=== PATIENT | male | born 1955 ===

== ENCOUNTER → 2017-04-20 | Outpatient (CLI) | payer BC ==
[~2017-04-20] MED LIST: ALLEGRA ALLERG180 M1 PO; DULO30 PO; DULO60 PO; FLUSAL1005 INH; Omeprazole20 M1 PO
== END ==
LOC: LAB SHORT 10:52
DX: J02.9 Acute pharyngitis, unspecified (principal)
CPT/HCPCS: 87070

== ENCOUNTER 2019-01-29 10:37 | Day surgery (SDC) | payer BC ==
[~2019-01-29] VITALS: Ht 170.2 cm; Wt 86.1 kg
[2019-01-29] MEDS ORDERED: BECL25NI (11:51)
[2019-01-29] MEDS ORDERED: IBUP600 (11:52)
[2019-01-29] MEDS ORDERED: FLUTICASONE-SA1 EAC1 (11:52)
== END 2019-01-29 13:17 | disposition home or self-care (01) ==
LOC: ORSCSDS 10:37
PROVIDERS: Internal Medicine Gastroenterology
PROC: 0DBH8ZX Excision of Cecum, Via Natural or Artificial Opening Endoscopic, Diagnostic (ICD-10-PCS; principal; 2019-01-29 12:00)
PROC: 0DBL8ZX Excision of Transverse Colon, Via Natural or Artificial Opening Endoscopic, Diagnostic (ICD-10-PCS; principal; 2019-01-29 12:00)
DX: Z12.11 Encounter for screening for malignant neoplasm of colon (principal); D12.3 Benign neoplasm of transverse colon; K57.30 Diverticulosis of large intestine without perforation or abscess without bleeding; K64.8 Other hemorrhoids; Z86.010 Personal history of colon polyps; J45.909 Unspecified asthma, uncomplicated; Z79.899 Other long term (current) drug therapy
CPT/HCPCS: 88305; J2704; J7120

== ENCOUNTER 2019-12-17 06:47 | Day surgery (SDC) | payer OTHER, BC ==
[~2019-12-17] VITALS: Ht 166 cm; Wt 87.8 kg
[~2019-12-17 06:47] MED LIST changes: -ALLEGRA ALLERG180 M1 PO; +ALLEGRA ALLERGY60 MG PO; +BECL25NI; +CENTRUM SILVER1 EAC2 PO; +FLUTICASONE-SA1 EAC1; +IBUP600 PO
--- NOTE | 2019-12-17 09:22 | NUR ---
Ambulatory in Day Surgery History, Chart, Medications and Allergies reviewed before start of procedure.Patient confirms NPO status and agrees with scheduled surgery. Patient reports completing Chlorhexadine shower X2 prior to admission to hospital.MRSA SWABS TAKEN AND SENT. NOSIN NASAL SWABS DONE AFTER.
--- NOTE | 2019-12-17 14:30 | NUR ---
ARRIVED FROM PACU AT 1210 PT IS ALERT AND ORIENTED X4. S/P LEFT TKA. L KNEE WRAPPED WITH ТАТЬЯНА WRAPPED, CDI. PT REPORTS PAIN 6/10. PT DENIES NUMBNESS. REPORTS TINGLING SENSATION ON L FOOT. PT DENIES CHEST PAIN/PRESSURE, SOB, AND DENIES DIZZINESS. PT TOLERATING LUNCH MEAL DENIES NAUSEA AND NO VOMITING. PT HAD 1 UNMEASURED VOID. AMBULATING WITH 1 PERSON MINIMAL ASSIST. PT REPORTS BM BEFORE SURGERY ON 12/15/19. LUNG SOUNDS ARE CLEAR. 2L O2 WITH 97% SPO2. HX SLEEP APNEA, CPAP MACHINE BROUGHT IN BY , RESPIRATORY THERAPIST CAME IN TO EVAL MACHINE AND CONTINIOUS BIOX WAS ORDERED. O2 TITRATE TO 1L OXYGEN, PT SATURATING AT 95%. REPORT RECIEVED FROM JEMIMA. IV ON R FOREARM WITH LR RUNNING. TXA ADMINSTERED AT 1220.CC
--- NOTE | 2019-12-17 16:58 | NUR ---
SHIFT SUMMARY POD0 L TKA, ARRIVED FROM PACU AT 1210. PT IS AOX4. VSS. PT DENIES CHEST PAIN/ PRESSURE, NO SOB AND NO DIZZINESS. PT ALSO DENIES NUMBNESS AND TINLGING SENSATION. PT STS PAIN/ACHE/SORE IS 6/10, ON L KNEE. PT TOLERATION LUNCH MEAL WELL DENIES NAUSEA AND VOMITING. PT URINATING ADEQUATELY. 1 UNMEASURED VOID. PT AMBULATED IN THE BATHROOM WITH 1 PERSON MINIMAL ASSIST. PT WAS SEEN BY THERAPIST TODAY WELL. ALSO HX OF SLEEP APNEA. PT'S BROUGHT CPAP. RESPIRATORY THERAPIST CAME IN FOR CPAP SET UP AND CONTINIOUS BIOX.
--- NOTE | 2019-12-17 19:37 | NUR ---
SHIFT SUMMARY PT POD0 S/P L TKA. PT DENIES CHEST PAIN/PRESSURE, SOB, AND NO DIZZINESS. PT DID NOT HAVE SPINAL. PT HAS FULL SENSATION ON BLE, INTERMITTENT NUMBNESS ON L LEG AND TINGLING ON L FOOT. VSS. POLAR PACK, CHRIS HOSE, PAS AND NON-SKID SOCKS ON BILAT LEG. IV ON R FOREARM. PT TOLERATION DINNER MEAL AND SNACK, DENIES NAUSEA AND VOMITING. TOLERATING AMBULATION TO BATHROOM WELL WITH 2 UNMEASURED VOIDS. HE WAS SEEN BY PHYS THERAPIST THIS AFTERNOON. CPAP IN ROOM SET UP BY RESP THERAPIST WITH CONTINOUS BIOX.
[2019-12-18 04:28] LABS: BASOPHILS ABSOLUTE AUTO 0.01 K/mm3 (0.00-0.23); BASOPHILS PERCENT AUTO 0 % (0-2); EOSINOPHILS ABSOLUTE AUTO 0.02 K/mm3 (0.00-0.68); EOSINOPHILS PERCENT AUTO 0 % (0-6); Hemoglobin 12.8 g/dL (13.5-17.5); IMMATURE GRAN ABSOLUTE AUTO 0.04 K/mm3 (0.00-0.10); IMMATURE GRAN PERCENT AUTO 0 % (0-1); LYMPHOCYTES PERCENT AUTO 7 % (21-46); MONOCYTES ABSOLUTE AUTO 0.99 K/mm3 (0.16-1.47); MONOCYTES PERCENT AUTO 8 % (4-13); Mean Corpuscular HGB 31.6 pg (26.0-34.0); Mean Corpuscular HGB Conc 33.7 g/dL (31.5-36.5); Mean Corpuscular Volume 94 fL (80-100); Mean Platelet Volume 9.7 fL (9.1-12.4); NEUTROPHILS PERCENT AUTO 85 % (41-73); Platelet Count 150 K/mm3 (150-400); RDW Coefficient Variation 11.9 % (11.7-14.2); RDW Standard Deviation 41.9 fL (35.1-46.3); Red Blood Cell Count 4.05 M/mm3 (4.30-5.90); White Blood Cell Count 12.06 K/mm3 (4.00-11.30)
--- NOTE | 2019-12-18 04:40 | NUR ---
SHIFT SUMMARY: PT POD#1 FOR LEFT TKA. ТАТЬЯНА WRAP AND AQUACEL DRESSING C/D/I WITH POLAR PACK IN PLACE. PT COMPLAINING OF N/T TO LEFT LEG IN BEGINNING OF SHIFT. ТАТЬЯНА WRAP RE-WRAPPED AND N/T HAS NOW RESOLVED. PULSES PALPABLE, CAP REFILL WNL. PT ABLE TO WIGGLE TOES. PT AMBULATING HALLWAY WITH SBA+FWW. TOLERATING ACTIVITY WELL. VOIDING WELL AND BEE PO. PAIN BEING MANAGED WITH SCHEDULED TORADOL AND TYLENOL. MEDICATED WITH 10MG OXY FOR BREAKTHROUGH PAIN. IV ABX COMPLETE. SALINE LOCKED. PLAN FOR PHYSICAL THERAPY AND POSS DISCHARGE TODAY. ALL VSS THROUGHOUT SHIFT.
[2019-12-18 04:47] LABS: Anion Gap 6 mmol/L (6-16); Blood Urea Nitrogen 16 mg/dL (8-24); Bun/Creatinine Ratio 19.6 (12.0-20.0); CO2, Blood 28 mmol/L (21-32); Calcium, Blood 8.4 mg/dL (8.5-10.1); Chloride, Blood 104 mmol/L (98-108); Creatinine, Blood 0.82 mg/dL (0.60-1.20); Glomerular Filtration Rate >60 (60-); Glucose, Blood 135 mg/dL (70-99); Potassium, Blood 4.4 mmol/L (3.5-5.5); Sodium, Blood 138 mmol/L (136-145)
[2019-12-18] MEDS ORDERED: Percocet 5-3251 EACH PO (08:45)
[2019-12-18] MEDS ORDERED: ASPI81CH PO (08:46)
--- NOTE | 2019-12-18 10:02 | NUR ---
DISCHARGE SUMMARY PT A&OX4, VSS, LEFT FLOOR VIA WC WITH ALLL PERSONAL POSSESSIONS INCLUDING POLAR DIMITRY, DC PACKET, 1 NARC SCRIPT, 1 ASA 81 MG SCRIPT, AQUACEL DRESSINGS, TO GO HOME WITH . DC INSTRUCTIONS PROVIDED. PT REP UNDERSTANDING THOSE INSTRUCTIONS INCLUDING FU APPT WITH ORTHO SURGEON, OK TO SHOWER, NO TUB/JACUZZI/DRIVING, PHYSICAL THERAPY/EXERCISES, TCDB/I.S. IV DC'D.
== END 2019-12-18 10:00 | disposition home or self-care (01) ==
LOC: ORSCMMR 06:47 → ORD 08:15 → SURS 12:05 → ORSCMMR 12-18 10:00
PROVIDERS: Orthopaedic Surgery
PROC: 0SRD0JA Replacement of Left Knee Joint with Synthetic Substitute, Uncemented, Open Approach (ICD-10-PCS; principal; 2019-12-17 08:15)
DX: M12.562 Traumatic arthropathy, left knee (principal); J45.909 Unspecified asthma, uncomplicated; Z79.899 Other long term (current) drug therapy
CPT/HCPCS: 36415; 73560-LT; 80048; 85025; 87081; 88300; 94640; 94762; 97110; 97116; 97161; 97530; A9270; A9270-GY; C1776; J0171; J0690; J0735; J1100; J1170; J1885; J2250; J2370; J2405; J2704; J2710; J2795; J3010; J7120

== ENCOUNTER 2022-07-21 09:07 | Day surgery (SDC) | payer BC ==
[~2022-07-21] VITALS: Ht 170.2 cm; Wt 82.7 kg
[~2022-07-21 09:07] MED LIST changes: +ASPI81CH PO; +Percocet 5-3251 EACH PO
[2022-07-21] MEDS ORDERED: ALBU2.5V5 (09:22)
[2022-07-21] MEDS ORDERED: PSEU120ER (09:23)
[2022-07-21 10:51] VITALS: BP 108/83
== END 2022-07-21 10:58 | disposition home or self-care (01) ==
LOC: ORSCSDS 09:07
PROVIDERS: Internal Medicine Gastroenterology
PROC: 0DBM8ZX Excision of Descending Colon, Via Natural or Artificial Opening Endoscopic, Diagnostic (ICD-10-PCS; principal; 2022-07-21 10:30)
PROC: 0DBK8ZX Excision of Ascending Colon, Via Natural or Artificial Opening Endoscopic, Diagnostic (ICD-10-PCS; principal; 2022-07-21 10:30)
PROC: 0DBL8ZX Excision of Transverse Colon, Via Natural or Artificial Opening Endoscopic, Diagnostic (ICD-10-PCS; principal; 2022-07-21 10:30)
DX: Z12.11 Encounter for screening for malignant neoplasm of colon (principal); Z86.010 Personal history of colon polyps; K63.5 Polyp of colon; D12.3 Benign neoplasm of transverse colon; D12.4 Benign neoplasm of descending colon; K64.8 Other hemorrhoids; K57.30 Diverticulosis of large intestine without perforation or abscess without bleeding; Z79.899 Other long term (current) drug therapy
CPT/HCPCS: 88305; J2704; J7120

== ENCOUNTER 2023-01-26 11:06 | Day surgery (SDC) | payer OTHER ==
[~2023-01-26] VITALS: Ht 170.2 cm; Wt 82.9 kg
[~2023-01-26 11:06] MED LIST changes: +ALBU2.5V5; +ALBU90OI; +PSEU120ER
[2023-01-26] MEDS ORDERED: FLUT.05NI (11:56)
--- NOTE | 2023-01-26 12:05 | NUR ---
01/26/23 1205 Lindsay Mahan TIME OUT TAKEN TO VERIFY CORRECT PT, SITE, PROCEEDURE, MEDICATION AND ALLERGIES. PT ELECTED TO PROCEED WITH BLOCK W/O VERSED. VS STABLE THOUGHOUT PROCEEDURE. PT TOLERATED WELL. DONE AT 1204
--- NOTE | 2023-01-26 12:48 | NUR ---
01/26/23 1248 Laura Cotto PATIENT LOCALIZED IN PRE OP.
[2023-01-26 13:13] VITALS: BP 138/82
== END 2023-01-26 13:17 | disposition home or self-care (01) ==
LOC: ORSCSDS 11:06
PROVIDERS: Orthopaedic Surgery
PROC: 01N54ZZ Release Median Nerve, Percutaneous Endoscopic Approach (ICD-10-PCS; principal; 2023-01-26 12:30)
DX: G56.01 Carpal tunnel syndrome, right upper limb (principal); F41.9 Anxiety disorder, unspecified; F32.A Depression, unspecified; J45.909 Unspecified asthma, uncomplicated; Z79.899 Other long term (current) drug therapy
CPT/HCPCS: J2250; J7120

== ENCOUNTER 2023-03-21 10:49 | Day surgery (SDC) | payer OTHER ==
[~2023-03-21] VITALS: Ht 167.6 cm; Wt 83.7 kg
[~2023-03-21 10:49] MED LIST changes: +FLUT.05NI
--- NOTE | 2023-03-21 12:08 | NUR ---
03/21/23 [facility]8 Kaela Warner 1158: TIMEOUT COMPLETED FOR PRE-PROCEDURAL INJECTION. PATIENT REFUSED VERSED.
[2023-03-21 12:43] VITALS: BP 126/88
== END 2023-03-21 13:08 | disposition home or self-care (01) ==
LOC: ORSCSDS 10:49
PROVIDERS: Orthopaedic Surgery
PROC: 01N54ZZ Release Median Nerve, Percutaneous Endoscopic Approach (ICD-10-PCS; principal; 2023-03-21 11:30)
DX: G56.02 Carpal tunnel syndrome, left upper limb (principal); J45.909 Unspecified asthma, uncomplicated; Z79.899 Other long term (current) drug therapy
CPT/HCPCS: J2250; J7120

== ENCOUNTER 2024-10-09 10:32 | Day surgery (SDC) | payer OTHER ==
[~2024-10-09] VITALS: Ht 167.6 cm; Wt 75.4 kg
[2024-10-09] MEDS ORDERED: ESOMEPRAZOLE MA40 MG (10:54)
[2024-10-09 13:06] VITALS: BP 111/79
== END 2024-10-09 12:40 | disposition home or self-care (01) ==
LOC: ORSCSDS 10:32
PROVIDERS: Specialist
PROC: 0DBL8ZX Excision of Transverse Colon, Via Natural or Artificial Opening Endoscopic, Diagnostic (ICD-10-PCS; principal; 2024-10-09 13:15)
PROC: 0DB98ZX Excision of Duodenum, Via Natural or Artificial Opening Endoscopic, Diagnostic (ICD-10-PCS; principal; 2024-10-09 13:15)
PROC: 0DB58ZX Excision of Esophagus, Via Natural or Artificial Opening Endoscopic, Diagnostic (ICD-10-PCS; principal; 2024-10-09 13:15)
PROC: 0DB78ZX Excision of Stomach, Pylorus, Via Natural or Artificial Opening Endoscopic, Diagnostic (ICD-10-PCS; principal; 2024-10-09 13:15)
PROC: 0DBM8ZX Excision of Descending Colon, Via Natural or Artificial Opening Endoscopic, Diagnostic (ICD-10-PCS; principal; 2024-10-09 13:15)
DX: R19.4 Change in bowel habit (principal); R10.12 Left upper quadrant pain; R10.13 Epigastric pain; K29.80 Duodenitis without bleeding; K29.70 Gastritis, unspecified, without bleeding; K44.9 Diaphragmatic hernia without obstruction or gangrene; K31.9 Disease of stomach and duodenum, unspecified; D12.3 Benign neoplasm of transverse colon; D12.4 Benign neoplasm of descending colon; K57.30 Diverticulosis of large intestine without perforation or abscess without bleeding; K64.8 Other hemorrhoids; K76.0 Fatty (change of) liver, not elsewhere classified; G47.33 Obstructive sleep apnea (adult) (pediatric); Z86.0101 Personal history of adenomatous and serrated colon polyps; Z79.899 Other long term (current) drug therapy
CPT/HCPCS: 88305; 88342; J2704; J7120